=== PATIENT | male | born 1960 | race Caucasian/White ===

== ENCOUNTER 2016-06-05 09:05 | Day surgery (SDC) | payer BC ==
[~2016-06-05 09:05] MED LIST: Lactated Ringers 1,000 ML IV SCH; Sodium Chloride 0.9% 10 ML Syringe FLUSH PRN
--- NOTE | 2016-06-05 10:03 | PCM.HPR ---
H & P Addendum review - H & P Addendum Review Date of Original H & P: 06/02/16 Date Reviewed: 06/05/16 Time Reviewed: 10:00 Patient was examined: No Changes
[2016-06-05] MEDS ORDERED: Propofol 200 MG/20 ML SDV ONE ×2 (10:14→10:20)
[2016-06-05] MEDS ORDERED: Midazolam 1 MG/ML 2 ML SDV ONE ×2 (10:14→10:20)
--- NOTE | 2016-06-05 10:55 | PCM.OPNOTE ---
- General Post-Op/Procedure Note Date of Surgery/Procedure: 06/05/16 Operative Procedure(s): Colonoscopy with polypectomy Findings: Coon Polyp X 4 Pre Op Diagnosis: HxColon Polyps Post-Op Diagnosis: Same Anesthesia Technique: MAC Primary Surgeon: Zelalem Craig Anesthesia Provider: Laura Yanes Pathology: Polyps EBL in mLs: 0 Condition: Good Free Text/Narrative:: Intake & Output 06/04/16 06/05/16 06/05/16 22:59 06:59 14:59 Intake Total 700 Balance 700
[2016-06-05 14:35] VITALS: BP 108/65
--- NOTE | 2016-06-06 08:00 | OR ---
Date of Procedure: 06/05/2016 PREOPERATIVE DIAGNOSIS: History of colon polyps. POSTOPERATIVE DIAGNOSIS: Colon polyps. PROCEDURE: Colonoscopy with polypectomy. ANESTHESIA: IV sedation. PROCEDURE IN DETAIL: The patient was brought to the procedure room, where he was placed on his left side and IV sedation administered. Digital rectal exam was performed, which was normal. Colonoscope was inserted and advanced to the level of the cecum without difficulty. Cecal position was confirmed by identifying the appendiceal lumen and ileocecal valve. Prep was good and surfaces were well visualized. Upon withdrawing the scope, there were 2 adjacent 5 mm sessile polyps in the mid-ascending colon that were removed with a cautery snare and retrieved in the polyp trap. Transverse colon was normal. In the proximal descending colon, at approximately 80 cm from the anal verge was a 6 mm sessile polyp, removed with a cautery snare. Lastly, there was a 6 mm sessile polyp in the sigmoid colon at 35 cm from the anal verge. It was removed with a cautery snare and retrieved in the polyp trap. Rectum was normal and retroflexion was normal. Air was removed and the scope withdrawn. The patient tolerated the procedure well. Returned to recovery in stable condition. The patient will follow up with Amalia Castellanos next week for review of pathology report. If any polyps are adenomatous, he should undergo repeat colonoscopy again in 3 years. If all the polyps are hyperplastic, he could wait 5 years until his next colon screening. REMBERTO NOBLE MD /[id number]
== END 2016-06-05 12:12 | disposition home or self-care (01) ==
LOC: LL.SDS 09:05
PROVIDERS: ATTEND Surgery
DX: Z12.11 Encounter for screening for malignant neoplasm of colon (principal); D12.2 Benign neoplasm of ascending colon; D12.5 Benign neoplasm of sigmoid colon; E78.5 Hyperlipidemia, unspecified; F17.210 Nicotine dependence, cigarettes, uncomplicated; Z79.899 Other long term (current) drug therapy
CPT/HCPCS: 45385; J2250; J2704; J7120

== ENCOUNTER 2017-04-16 12:00 | Day surgery (SDC) | payer BC ==
[2017-04-16] MEDS ORDERED: Propofol 200 MG/20 ML SDV ONE ×2 (14:38→14:48)
[2017-04-16] MEDS ORDERED: fentaNYL 100 MCG/2 ML SDV ONE ×2 (14:38→14:48)
[2017-04-16] MEDS ORDERED: Midazolam 1 MG/ML 2 ML SDV ONE ×2 (14:38→14:48)
[2017-04-16] MEDS ORDERED: Lidocaine 2% 5 ML SDV ONE (14:48)
--- NOTE | 2017-04-16 14:55 | PCM.PN ---
- General Info Date of Service: 04/16/17 - Review of Systems Systems Review Comment:: 56-year-old male referred for EGD. Patient has been having some dysphasia and recent evaluation is concerning for possible esophageal mass. I discussed the proposed EGD with the patient. He agrees to proceed accepting risks. - Patient Data Vitals - Most Recent: Last Vital Signs Temp 98.8 F 04/16/17 12:46 Pulse 87 04/16/17 12:46 Resp 18 04/16/17 12:46 BP 119/80 04/16/17 12:46 Pulse Ox 99 04/16/17 12:46 Weight - Most Recent: 68.039 kg Med Orders - Current: Current Medications Lactated Ringer's (Ringers, Lactated) 1,000 mls @ 125 mls/hr IV ASDIRECTED MONICA Last Admin: 04/16/17 12:43 Dose: 125 mls/hr Sodium Chloride (Saline Flush) 10 ml FLUSH ASDIRECTED PRN PRN Reason: Keep Vein Open Discontinued Medications Fentanyl (Sublimaze) Confirm Administered Dose 100 mcg .ROUTE .STK-MED ONE Stop: 04/16/17 14:39 Midazolam HCl (Versed 1 Mg/Ml) Confirm Administered Dose 4 mg .ROUTE .STK-MED ONE Stop: 04/16/17 14:39 Propofol (Diprivan 20 Ml) Confirm Administered Dose 200 mg .ROUTE .STK-MED ONE Stop: 04/16/17 14:39 - Problem List Review Problem List Initiated/Reviewed/Updated: Yes - Assessment Assessment:: Dysphasia - Plan Plan:: EGD
--- NOTE | 2017-04-16 15:19 | PCM.OPNOTE ---
- General Post-Op/Procedure Note Date of Surgery/Procedure: 04/16/17 Operative Procedure(s): EGD with Biopsy Findings: Large Fungating Mass in Distal Esophagus Consistent with Cancer Pre Op Diagnosis: Dysphagia Post-Op Diagnosis: Cancer of the Esophagus Anesthesia Technique: MAC Primary Surgeon: Forrest Sandoval Pathology: Biopsies of Esophageal Mass Output, Urine Amount: 0 EBL in mLs: 5 Complications: None Condition: Good
--- NOTE | 2017-04-16 17:16 | OR ---
Date of Procedure: 04/16/2017 PREOPERATIVE DIAGNOSIS: Dysphagia. POSTOPERATIVE DIAGNOSIS: Esophageal cancer. OPERATION PERFORMED: Esophagogastroduodenoscopy with biopsy. INDICATIONS FOR SURGERY: This 56-year-old male, who has been having increasing symptoms of dysphagia. Recent workup has identified findings worrisome for the possibility of metastatic esophageal cancer and he is referred for upper endoscopy. FINDINGS: There is a large fungating mass involving the distal esophagus, this extends from approximately the GE junction proximally, extending a distance of 9 cm. The mass is circumferential, fungating, and partially constricting, although the scope does pass without difficulty through the lumen into the stomach. The gastric and duodenal lining otherwise appear unremarkable as does the upper most portion of the esophagus. PROCEDURE IN DETAIL: The patient was taken to the operating room. He was given intravenous sedation and his throat was topically anesthetized. With him in the left lateral decubitus position, the esophagus was intubated with the Olympus gastroscope. This was carefully advanced down through the esophagus, past the large fungating esophageal mass down into the stomach and to the third portion of the duodenum. Examination of the duodenum and then the stomach including retroflexed examination of the fundus was carried out. The scope was withdrawn back into the esophagus where multiple biopsies of various levels are taken of the large mass. Attempt was made to obtain client service representative samples of the mass with these biopsies. After this had been accomplished, the scope was withdrawn and removed. The patient was taken from the operating room in satisfactory condition. ESTIMATED BLOOD LOSS: 5 mL. COMPLICATIONS: None. PROGNOSIS: Immediate good, remote guarded. REMBERTO Sandoval MD /[id number]
[2017-04-16 17:47] VITALS: BP 106/60
== END 2017-04-16 16:37 | disposition home or self-care (01) ==
LOC: LL.SDS 12:00
PROVIDERS: ATTEND Surgery
DX: C15.5 Malignant neoplasm of lower third of esophagus (principal); E78.5 Hyperlipidemia, unspecified; F17.210 Nicotine dependence, cigarettes, uncomplicated
CPT/HCPCS: J2250; J2704; J3010; J7120